=== PATIENT | male | born 1995 | race Caucasian/White ===

== ENCOUNTER 2017-03-08 20:37 | Emergency (ER) | payer OTHER ==
[~2017-03-08] VITALS: Ht 175.3 cm; Wt 75.0 kg
[2017-03-08 20:59] VITALS: BP 128/63; PULSE 63; TEMP 97.6
== END 2017-03-08 21:50 | disposition home or self-care (01) ==
LOC: COL.ER 20:37
DX: T20.16XA Burn of first degree of forehead and cheek, initial encounter (principal); T20.13XA Burn of first degree of chin, initial encounter; T20.12XA Burn of first degree of lip(s), initial encounter; X10.2XXA Contact with fats and cooking oils, initial encounter